=== PATIENT | male | born 1985 | race African-American/Black ===

== ENCOUNTER 2018-02-23 15:43 | Observation (INO) ==
[2018-02-23] MEDS ORDERED: ALUM/MAG/SIMETH/LIDO VISC 1:1 30 ML BOTTLE PO ONE (18:41)
[2018-02-23] MEDS ORDERED: ASPIRIN 325 MG TABLET PO STA (18:44)
[2018-02-23] MEDS ORDERED: DICYCLOMINE 20 MG TABLET PO STA (18:44)
[2018-02-23] MEDS ORDERED: ALUM/MAG/SIMETH/LIDO VISC 1:1 30 ML BOTTLE PO STA (18:44)
[2018-02-23] MEDS ORDERED: PANTOPRAZOLE 40 MG TABLET PO STA (18:44)
[2018-02-23 19:15] LABS: Bilirubin,Total 0.5 MG/DL (0.2-1.0); Calcium 9.2 MG/DL (8.5-10.1); Osmolality,Calculated 277.5 MOS/KG (273-304); Potassium 3.8 MMOL/L (3.5-5.1); Total Protein 8.5 G/DL (6.4-8.3)
[2018-02-23 19:18] LABS: Basophils % 0.4 % (0.0-0.8); Eosinophils # 0.4 10*3/uL (0.0-0.87); Eosinophils % 4.5 % (0.00-10.9); Hematocrit 45.6 VOL% (42.0-52.0); Immature Granulocytes % 0.2 %; Immature Granulocytes Absolute 0.02 #; Lymphocytes # 2.9 10*3/uL (1.4-4.0); Lymphocytes % 35.1 % (21.2-54.2); Mean Corpuscular HGB Conc 30.7 GM/DL (32-36); Mean Corpuscular Hemoglobin 25 PG (27-34); Mean Platelet Volume 12.1 FL (9.6-12.0); Monocytes # 0.7 10*3/uL (0.11-0.8); Monocytes % 8.8 % (1.7-12.7); Neutrophils # 4.2 10*3/uL (1.4-7.4); Platelet Count 270 T/CUMM (130-400); Red Blood Count 5.56 MC/CUMM (3.8-5.5); Red Cell Distribution Width 14.2 % (9.3-17.3); White Blood Count 8.2 T/CUMM (4-12)
[2018-02-23 23:17] LABS: Barbiturates Screen,Urine Negative (Negative); Benzodiazepines Screen,Urine Negative (Negative); Cannabinoid Screen,Urine Negative (Negative); Opiate Screen,Urine Negative (Negative); Phencyclidine Screen,Urine Negative (Negative)
[2018-02-23] MEDS ORDERED: MORPHINE 4 MG/1 ML VIAL IV PRN (23:52)
[2018-02-23] MEDS ORDERED: POTASSIUM CHLORIDE 20 MEQ TABLET PO PRN (23:52)
[2018-02-23] MEDS ORDERED: MAGNESIUM SULF RIDER 2 GM in PREMIX 1 EACH IV PRN (23:52)
[2018-02-23] MEDS ORDERED: MAGNESIUM SULF RIDER 4 GM in PREMIX 1 EACH IV PRN (23:52)
[2018-02-24] MEDS: SODIUM CHLORIDE 0.9% 1,000 ML IV SCH ×2 (01:29→10:52)
[2018-02-24 06:30] LABS: Risk Ratio 3.13; Thyroid Stimulating Hormone 2.12 uIU/ml (0.358-3.74); VLDL CHOLESTEROL 31.6 MG/DL
[2018-02-24 06:37] LABS: Troponin I 0.092 NG/ML (0.00-0.045)
[2018-02-24] MEDS ORDERED: ENOXAPARIN 40 MG/0.4 ML SYRINGE SUBCUT SCH (09:00)
[2018-02-24] MEDS ORDERED: PANTOPRAZOLE 40 MG TABLET PO SCH (09:00)
[2018-02-24] MEDS ORDERED: ASPIRIN EC 325 MG TABLET PO SCH (09:00)
[2018-02-24 09:05] LABS: Troponin I 0.099 NG/ML (0.00-0.045)
[2018-02-24 11:43] VITALS: BP 121/74
[2018-02-24 16:24] LABS: Troponin I 0.114 NG/ML (0.00-0.045)
== END 2018-02-24 16:16 | disposition home or self-care (01) ==
LOC: N.EDINP 15:43 → N.ED 15:43 → N.2E 23:41
PROVIDERS: ADMIT Internal Medicine Cardiovascular Disease; ATTEND Internal Medicine Cardiovascular Disease